=== PATIENT | female | born 1965 | race Two or more races ===

== ENCOUNTER → 2024-06-17 | Outpatient (CLI) | payer BC, SELFPAY ==
--- NOTE | 2024-06-17 12:35 | XR_ITS ---
Examination: Foot, right, 3 views Technique: AP, oblique, lateral views foot, 3 views Date and time of exam: June 17, 2024 1310 hours INDICATIONS: Right heel pain beginning 2 weeks ago. FINDINGS: Prominent osteopenia Minimal bunion deformity Mild narrowing first metatarsophalangeal joint 3 mm plantar 3 mm posterior bony calcaneal spurs Ossification in the plantar fascia IMPRESSION: Small plantar posterior bony calcaneal spurs Plantar fasciitis
== END | disposition home or self-care (01) ==
LOC: CDIM 12:24
PROVIDERS: PCP Family Medicine; Referring Provider Physician Assistant; Visit Provider Physician Assistant
DX: M77.31 Calcaneal spur, right foot (principal); M72.2 Plantar fascial fibromatosis
CPT/HCPCS: 73630

== ENCOUNTER → 2024-09-23 | Outpatient (CLI) | payer BC, SELFPAY ==
--- NOTE | 2024-09-23 15:58 | XR_ITS ---
Examination: Foot, right, 3 views Technique: AP, oblique, lateral views foot, 3 views Date and time of exam: September 23, 2024 1614 hours INDICATIONS: Pain on the top of the foot post injury 2 weeks ago. FINDINGS: Small plantar posterior bony calcaneal spurs Plantar fascia calcification No acute fracture IMPRESSION: No acute fracture
== END | disposition home or self-care (01) ==
PROVIDERS: PCP Specialist; Referring Provider Specialist; Visit Provider Specialist
DX: S99.921A Unspecified injury of right foot, initial encounter (principal); X58.XXXA Exposure to other specified factors, initial encounter
CPT/HCPCS: 73630